=== PATIENT | male | born 1965 | race Caucasian/White ===

== ENCOUNTER → 2023-12-31 06:41 | Outpatient (REF) | payer OTHER, SELFPAY | LOC: RAD 06:41 | PROVIDERS: ATTENDING PHYSICIAN Physician Assistant; FAMILY PHYSICIAN Physician Assistant Medical | DX: E83.52 Hypercalcemia (principal); E34.9 Endocrine disorder, unspecified | CPT/HCPCS: 78071; A9500 ==

== ENCOUNTER → 2024-01-08 07:08 | Outpatient (REF) | payer OTHER, SELFPAY | LOC: RAD 07:08 | PROVIDERS: ATTENDING PHYSICIAN Physician Assistant; FAMILY PHYSICIAN Physician Assistant Medical | DX: E83.52 Hypercalcemia (principal); E34.9 Endocrine disorder, unspecified | CPT/HCPCS: 77080; 77081 ==

== ENCOUNTER → 2024-01-12 07:00 | Outpatient (REF) | payer OTHER, SELFPAY | LOC: HWRAD 07:00 | PROVIDERS: ATTENDING PHYSICIAN Physician Assistant; FAMILY PHYSICIAN Physician Assistant Medical | DX: E83.52 Hypercalcemia (principal); E34.9 Endocrine disorder, unspecified | CPT/HCPCS: 76536 ==

== ENCOUNTER 2024-03-08 06:04 | Day surgery (SDC) | payer OTHER, SELFPAY ==
[2024-03-02 07:53] VITALS: BMI 53.3
[2024-03-02 09:23] LABS: Hematocrit 40.2 % (39.0-52.0); Hemoglobin 13.6 g/dL (13.0-18.0); Mean Corp Hgb Conc. 33.8 g/dL (33.0-37.0); Mean Corpuscular Hgb 31.2 pg (27.0-31.0); Mean Corpuscular Volume 92.2 fL (80.0-94.0); Mean Platelet Volume 11.9 fL (7.4-10.4); Platelet Count 231 10^3/uL (130-400); Red Blood Cell Count 4.36 10^6/uL (4.70-6.10); Red Cell Dist. Width 12.9 % (11.5-14.5); White Blood Cell Count 8.5 10^3/uL (4.8-10.8)
[2024-03-02 09:27] LABS: INR 1.21; PT 15.4 Sec (11.4-14.6)
[2024-03-02 09:28] LABS: APTT 30.4 Sec (23.4-35.0)
[2024-03-02 09:57] LABS: ALT (SGPT) 20 U/L (0-50); AST (SGOT) 22 U/L (17-59); Albumin 4.4 g/dl (3.5-5.0); Alkaline Phosphatase 67 U/L (38-126); Blood Urea Nitrogen 32 mg/dl (9-20); Calcium 11.6 mg/dl (8.4-10.2); Carbon Dioxide 24 mmol/L (22-30); Chloride 105 mmol/L (98-107); Estimated Creatinine Clearance 104 ml/min; Glucose 158 mg/dl (70-99); Potassium 4.6 mmol/L (3.5-5.1); Sodium 138 mmol/L (135-145); Total Bilirubin 1.9 mg/dl (0.2-1.3); Total Protein 7.2 g/dl (6.3-8.2); eGFR > 60.00
[2024-03-08] VITALS (8 sets, daily range): BP systolic 126–149; BP diastolic 76–95; BMI 53.3
[2024-03-08] MEDS: HEPARIN 5000 UNITS SC (06:32)
[2024-03-08] MEDS: TYLENOL 1000 MG PO (06:33)
[2024-03-08] MEDS: NEURONTIN 300 MG PO (06:33)
[2024-03-08] MEDS: NORMOSOL-R 1000 IV (06:34)
[2024-03-08 06:41] LABS: Glucose - Point of Care 174 mg/dl (70-99)
[2024-03-08 08:46] LABS: Turbo PTH 154.3 pg/ml (13.6-85.8)
[2024-03-08 09:16] LABS: Turbo PTH 24.4 pg/ml (13.6-85.8)
--- NOTE | 2024-03-08 09:23 | OR.RPT ---
Operative Report
Operative Report
Date of Operation: March 08, 2024
Preoperative Diagnosis: �Parathyroid hyperparathyroidism - E210
Postoperative Diagnosis: Same
Surgeon: Chago Manzo M.D.
Operation: Minimally Invasive Right Inferior Parathyroidectomy - 43302
Anesthesia: GET
Estimated Blood Loss: 3 cc
Drains: None
Specimen: Right inferior neck nodule, rule out parathyroid adenoma
Complications: �None
Procedure:
The patient was taken to the operating room and placed in the usual supine position. After adequate general endotracheal anesthesia was established, the patient's neck was extended, prepped, and draped in the typical sterile fashion. A 4 cm
transcervical incision was made two fingerbreadths above the sternal notch. The skin incision was made with the #15 blade, and this was taken through the skin into the subcutaneous tissue. The underlying platysma muscle was divided, and subplatysmal
flaps were created superiorly to the thyroid cartilage and inferiorly to the sternal notch. Strap muscles were identified and at the midline.
Attention was turned to the patient's right side of the neck. The right thyroid lobe was mobilized medially. During this process, the right recurrent laryngeal nerve was identified and preserved throughout the surgery. The right lower neck nodule
was identified and noted to be enlarged, excised, and sent to the pathology department, which showed a hypercellular parathyroid gland. The intraoperative PTH levels normalized.
After obtaining adequate hemostasis, the strap muscles were reapproximated with #3-0 Vicryl in a running fashion. The platysma muscle was reapproximated with #3-0 Vicryl in an interrupted fashion, and the skin was approximated with #4-0 Monocryl in
a running subcuticular fashion. The Steri-Strips and sterile dressings were placed. The patient tolerated the procedure well. The final instrument, needle, and sponge counts were correct. The patient was extubated and transferred to the PACU.
--- NOTE | 2024-03-08 09:24 | W.IMMPOSTOP ---
Surgical Immed Post Op Note
-
Patient Name: Venkatesh Lam Jr
Date of : 1965
Date of Operation: March 08, 2024
Preoperative Diagnosis: �Parathyroid hyperparathyroidism - E210
Postoperative Diagnosis: Same
Surgeon: Chago Manzo M.D.
Operation: Minimally Invasive Right Inferior Parathyroidectomy - 70781
Anesthesia: GET
Estimated Blood Loss: 3 cc
Drains: None
Specimen: Right inferior neck nodule, rule out parathyroid adenoma
Complications: �None
[2024-03-08 09:56] LABS: Glucose - Point of Care 180 mg/dl (70-99)
== END 2024-03-08 11:20 | disposition home or self-care (01) ==
LOC: SDS 06:04
PROVIDERS: ATTENDING PHYSICIAN Surgery; FAMILY PHYSICIAN Physician Assistant Medical; OTHER PHYSICIAN Internal Medicine Cardiovascular Disease; OTHER PHYSICIAN Physician Assistant
DX: E21.0 Primary hyperparathyroidism (principal); E21.3 Hyperparathyroidism, unspecified
CPT/HCPCS: 60500; 88305; 88332; 36415; 80053; 82962; 83970; 85027; 85610; 85730; 88331; 93005

== ENCOUNTER 2024-09-16 10:37 | Emergency (ER) | payer OTHER, SELFPAY ==
[2024-09-16 10:40] VITALS: BP 114/71
--- NOTE | 2024-09-16 11:44 | ED.GENMED ---
History of Present Illness
General
Chief Complaint: Abdominal Pain
Time Seen by Provider: 09/16/24 11:33
History of Present Illness
History of Present Illness:
58-year-old male with history of A-fib, morbid obesity, CHF, hypertension, and hyperlipidemia presents to the emergency department for evaluation of left lower abdominal pain for the past 2 days. He was initially concerned this was related to his
umbilical hernia as it began after straining for a bowel movement. States that he has difficulty passing gas but he still is passing flatus. No fevers or chills. Did have diarrhea but notes that he is currently on Mounjaro and this is not
atypical since he started this medication.
Past History
Past History
ED Past Medical History: Arrthythmia (afib), HTN, Hypercholesterolemia, NIDDM and Other (Pulmonary embolism/DVT, Naval hernia)
ED Past Surgical History: Other (Gastric sleeve, uvulectomy, IVC filter)
Social History
Tobacco: Non-smoker
Alcohol: None
Drug: None
Personal:
Living: alone
Employment: Employed
Family History
Family History: Other (Noncontributory)
Review of Systems
Review of Systems
Allergies reviewed?: Yes
All Other Systems: ROS reviewed and negative except as documented in HPI and ROS
Phy Exam
Physical Exam
Physical Exam:
GEN: Well appearing, NAD, WDWN
Eyes: PERRLA, EOMs intact, no scleral icterus
HENT: NCAT, oral mucosa moist
Lungs: CTAB, no wheezes, rales, rhonchi, normal chest wall excursion
Cardiac: RRR, no M/R/G, no peripheral edema. Radial pulses 2+ bilat
Abdomen: Diffusely soft, focal tenderness to the left lower quadrant. There is a soft large umbilical hernia that is not easily reduced, + tender to palpation
Neuro: AO x 3
MSK: No gross deformity or ecchymosis. No edema. No digital clubbing
Skin: No rashes, petechiae. Normal color, no pallor or jaundice.
Psych: Calm, cooperative, proper hygiene
Course
Orders/Labs/Results
Orders:
Orders
09/16/24 11:43
CT Abd/Pel (IV only)-DH only Urgent
Comment:
Reason For Exam: LLQ pain
09/16/24 12:08
Complete Blood Count/With Diff Urgent
Comprehensive Metabolic Panel Urgent
Abnormal Lab Results
09/16/24
12:08
RBC 3.63 L 10^6/uL
(4.70-6.10)
Hgb 12.2 L g/dL
(13.0-18.0)
Hct 35.8 L %
(39.0-52.0)
MCV 98.6 H fL
(80.0-94.0)
MCH 33.6 H pg
(27.0-31.0)
MPV 11.2 H fL
(7.4-10.4)
Chloride 109 H mmol/L
(98-107)
BUN 32 H mg/dl
(9-20)
Glucose 106 H mg/dl
(70-99)
Calcium 10.3 H mg/dl
(8.4-10.2)
Total Bilirubin 1.4 H mg/dl
(0.2-1.3)
09/16/24 12:08
09/16/24 12:08
Vital Signs
Initial and Last Documented VS:
Initial Vital Signs
Temp Pulse Resp BP Pulse Ox
98.1 F 95 16 114/71 98
09/16/24 10:40 09/16/24 10:40 09/16/24 10:40 09/16/24 10:40 09/16/24 10:40
Last Documented Vital Signs
Temp Pulse Resp BP Pulse Ox
98.1 F 80 12 109/75 96
09/16/24 10:40 09/16/24 14:15 09/16/24 14:15 09/16/24 14:00 09/16/24 14:00
MDM/Problems Addressed
MDM/Problems Addressed:
CT without a clearly explainable etiology to the patient's symptoms. There is some mild inflammatory change around the umbilical hernia however there is no bowel within the hernia thus this is not a concerning finding. May be a musculoskeletal
etiology
*Critical Care Note
Total Time (30-74mins, 75-104mins- exclusive of procedures): Not Applicable
ED Attending Note
-
Portions of this chart may have been created with voice recognition software.� Occasional wrong word or��sound alike� substitutions may have occurred due to the inherent limitations of voice recognition software.
Discharge Plan
Departure
Patient Disposition: Home (Routine Discharge)
Date of Disposition: 09/16/24
Time of Disposition: 14:12
Patient with high blood pressure during this ER visit?: No
Discharge Problem:
Abdominal pain, lower, Hernia, umbilical
Instructions: Abdominal Pain
Prescriptions:
No Action
cyanocobalamin (vitamin B-12) 1,000 MCG tablet
500 mcg PO DAILY
cetirizine 10 MG tablet
10 mg PO DAILY
cholecalciferol (vitamin D3) 2,000 UNITS tablet
2,000 units PO DAILY
Xarelto 20 MG tablet
20 mg PO DAILY
multivitamin with folic acid [Tab-A-Suellen] 1 TABLET tablet
1 tab PO DAILY
metformin 500 MG tablet
500 mg PO BID@0800,1700
atorvastatin 20 MG tablet
20 mg PO DAILY
fluticasone propionate 1 SPRAY spray,suspension
2 spray intranasal DAILY
nebivolol 10 MG tablet
20 mg PO DAILY
magnesium oxide 500 MG tablet
500 mg PO DAILY 30 Days Qty: 30 0RF
furosemide 40 mg tablet
40 mg PO DAILY
spironolactone 25 MG tablet
25 mg PO DAILY
allopurinol 100 mg Tablet
100 mg PO BID
acetaminophen [Tylenol Ex Str Arthritis Pain] 500 mg Tablet
500 mg PO Q6H PRN (Reason: discomfort)
valsartan 320 mg Tablet
320 mg PO DAILY
ibuprofen 200 mg Tablet
200 mg PO Q6H PRN (Reason: discomfort)
insulin glargine [Lantus Solostar U-100 Insulin] 100 unit/mL (3 mL) Insulin Pen
10 unit SC DAILY
turmeric 400 mg Capsule
400 mg PO DAILY
Mounjaro 5 mg/0.5 mL Pen Injector
5 mg SC SA
Ice Hot Cream
1 dose topical PRN PRN (Reason: pain)
Slo-Iron
1 tab PO DAILY
Referrals:
Nely Patel PA-C [Family Provider] -
Interventions
Interventions:
*Risk Screen - Suicide Last Done: 09/16/24 10:40
*General Assessment Last Done: 09/16/24 10:40
*Neglect/Abuse Screening Last Done: 09/16/24 10:40
*ED COVID-19 Vaccine History Last Done: 09/16/24 12:00
*Nursing Disposition Last Done: 09/16/24 14:42
[facility]-Rzbyxw-Voxsbggewg Assessment Last Done: 09/16/24 12:12
Discharge Date and Time
Discharge Date/Time: 09/16/24 14:42
Print Language: THAI
[2024-09-16 11:59] VITALS: BMI 47.2
[2024-09-16 12:08] VITALS: BP 118/80
[2024-09-16 12:17] LABS: % Basophils 0.7 % (0-2); % Eosinophils 2.1 % (0-6); % Immature Granulocytes 0.3 % (0-0.5); % Lymphocytes 24.3 % (20.5-51.1); % Monocytes 6.4 % (1.7-9.3); % Neutrophils 66.2 % (42.2-75.2); Absolute Basophils 0.1 10^3/uL (0-0.2); Absolute Eosinophils 0.2 10^3/uL (0-0.7); Absolute Lymphocytes 1.8 10^3/uL (1.2-3.4); Absolute Monocytes 0.5 10^3/uL (0.1-0.6); Absolute Neutrophils 4.8 10^3/uL (1.4-6.5); Hematocrit 35.8 % (39.0-52.0); Hemoglobin 12.2 g/dL (13.0-18.0); Mean Corp Hgb Conc. 34.1 g/dL (33.0-37.0); Mean Corpuscular Hgb 33.6 pg (27.0-31.0); Mean Corpuscular Volume 98.6 fL (80.0-94.0); Mean Platelet Volume 11.2 fL (7.4-10.4); Nucleated Red Blood Cells % 0 % (-); Platelet Count 232 10^3/uL (130-400); Red Blood Cell Count 3.63 10^6/uL (4.70-6.10); Red Cell Dist. Width 13.5 % (11.5-14.5); White Blood Cell Count 7.2 10^3/uL (4.8-10.8)
[2024-09-16 12:40] LABS: ALT (SGPT) 20 U/L (0-50); AST (SGOT) 21 U/L (17-59); Albumin 4.3 g/dl (3.5-5.0); Alkaline Phosphatase 45 U/L (38-126); Blood Urea Nitrogen 32 mg/dl (9-20); Calcium 10.3 mg/dl (8.4-10.2); Carbon Dioxide 23 mmol/L (22-30); Chloride 109 mmol/L (98-107); Estimated Creatinine Clearance 96 ml/min; Glucose 106 mg/dl (70-99); Potassium 4.5 mmol/L (3.5-5.1); Sodium 143 mmol/L (135-145); Total Bilirubin 1.4 mg/dl (0.2-1.3); Total Protein 6.8 g/dl (6.3-8.2); eGFR > 60.00
[2024-09-16 13:16] VITALS: BP 95/79
[2024-09-16 14:00] VITALS: BP 109/75
== END 2024-09-16 14:42 | disposition home or self-care (01) ==
LOC: EMR 10:37
PROVIDERS: Physician Assistant; EMERGENCY PHYSICIAN Student in an Organized Health Care Education/Training Program; FAMILY PHYSICIAN Physician Assistant Medical
DX: K42.9 Umbilical hernia without obstruction or gangrene (principal); I48.91 Unspecified atrial fibrillation; I11.0 Hypertensive heart disease with heart failure; I50.9 Heart failure, unspecified; E78.00 Pure hypercholesterolemia, unspecified; E11.9 Type 2 diabetes mellitus without complications; Z86.718 Personal history of other venous thrombosis and embolism; Z79.85 Long-term (current) use of injectable non-insulin antidiabetic drugs
CPT/HCPCS: 99284; 74177; 80053; 85025; Q9967

== ENCOUNTER → 2025-04-25 07:42 | Outpatient (REF) | payer OTHER, SELFPAY | LOC: HWRAD 07:42 | PROVIDERS: ATTENDING PHYSICIAN Specialist; FAMILY PHYSICIAN Physician Assistant Medical; REFERRING PHYSICIAN Physician Assistant | DX: N18.30 Chronic kidney disease, stage 3 unspecified (principal); N18.31 Chronic kidney disease, stage 3a | CPT/HCPCS: 76770 ==

== ENCOUNTER 2025-04-25 08:42 | Emergency (ER) | payer OTHER, SELFPAY ==
[2025-04-25] VITALS (9 sets, daily range): BP systolic 114–140; BP diastolic 68–92; PULSE 79–90; BMI 44.8
--- NOTE | 2025-04-25 10:29 | ED.GENMED ---
History of Present Illness
General
Chief Complaint: Breathing Problem
Source: patient
Exam Limitations: none
Time Seen by Provider: 04/25/25 09:48
Nursing documentation reviewed up to this point in time: agreed with
History of Present Illness
History of Present Illness:
Patient is a 59-year-old male with chronic atrial fibrillation, DVT/PE on Xarelto, status post gastric sleeve in 2017, IVC filter,
Presents for exertional shortness of breath since yesterday noticeable only mildly with exertion but patient did not have any chest discomfort or inability to move around. This morning when he woke up he says he still felt a little short of breath
with exertion and also felt lightheaded while he was driving his car. Patient says he was feeling not himself and started getting concerned about his breathing. He has had episodes like this that have been related to congestive heart failure but
he has been compliant with his Lasix and his weight has not been increasing. He also previously had an IVC filter preemptively prior to his gastric sleeve and ultimately in 2018 had bilateral PE with right heart strain. Patient does not recall
stopping his Xarelto around that time but the discharge summary from his admission suggest that there was a brief interruption in his Xarelto. He was heparinized and transition back to the Xarelto. He has never had a new clot since. He did have a
traumatic hematoma of his lower extremity from a golf ball that caused a chronic wound and poor healing, patient had a wound VAC etc. That has healed but he has chronic skin changes of his lower extremity. He has no redness that is new or pain
there. Probably coincidentally 2 weeks ago the patient got a golf ball to his right medial thigh when he hit the golf ball and it ricocheted off of something back to his thigh. He has a bruise there but minimal pain and no swelling and no distal
leg swelling. Patient does not believe this is contributory but he was a little anxious because of his previous hematoma/infection.
pt is chronicalyl in afib
Past History
Past History
ED Past Medical History: Arrthythmia (afib), HTN, Hypercholesterolemia, NIDDM and Other (Pulmonary embolism/DVT, Naval hernia)
ED Past Surgical History: Other (Gastric sleeve, uvulectomy, IVC filter)
Social History
Tobacco: Non-smoker
Alcohol: None
Drug: None
Personal:
Living: alone
Employment: Employed
Family History
Family History: Other (Noncontributory)
Review of Systems
Review of Systems
Allergies reviewed?: Yes
All Other Systems: Not applicable
Phy Exam
Physical Exam
Physical Exam:
GENERAL: Alert , in no apparent distress, speaking in full sentences
EYE: pupils equal and reactive
NECK: Supple
ENT: o/p clr, mmm.
CARDIAC: Regular rate and rhythm . No significant edema
LUNGS: Patient has a faint end expiratory wheeze in his right lower lobe and right upper lobe, no cough, no tachypnea
ABDOMEN: Soft, without focal tenderness, no r/g, no cvat, normal bowel sounds
NEUROLOGICAL: Alert and oriented, no focal neuro deficits
SKIN: Warm and dry, skin intact.
MUSCULOSKELETAL: No edema, chronic skin changes to his left lower extremity, hyperpigmentation
Pulses intact neg fabby's sign
PSYCH: Normal and appropriate interaction.
Scores
Heart Failure Risk
Heart Failure Risk Score: Not Applicable
Course
Orders/Labs/Results
Orders:
Orders
04/25/25 09:02
Electrocardiogram (*1) Urgent
Reason for Study: Chest Pain
04/25/25 09:03
EKG- Treatment ONCE
04/25/25 10:05
Orthostatic VS- Treatment ONCE
04/25/25 10:07
CT Chest PE Study Urgent
Comment:
Reason For Exam: h/o B/L PE, sob
COVID-19 Antigen Urgent
Source: Nasal Swab
Complete Blood Count/With Diff Urgent
Comprehensive Metabolic Panel Urgent
NT-proBNP Urgent
Troponin I Urgent
Abnormal Lab Results
04/25/25
10:07
RBC 3.68 L 10^6/uL
(4.70-6.10)
Hgb 12.1 L g/dL
(13.0-18.0)
Hct 35.0 L %
(39.0-52.0)
MCV 95.1 H fL
(80.0-94.0)
MCH 32.9 H pg
(27.0-31.0)
MPV 11.3 H fL
(7.4-10.4)
Lymphocytes % 18.5 L %
(20.5-51.1)
BUN 26 H mg/dl
(9-20)
Creatinine 1.4 H mg/dL
(0.7-1.3)
Glucose 126 H mg/dl
(70-99)
Total Bilirubin 1.8 H mg/dl
(0.2-1.3)
04/25/25 10:07
04/25/25 10:07
Vital Signs
Initial and Last Documented VS:
Initial Vital Signs
Temp Pulse Resp BP Pulse Ox
36.7 C 108 22 140/92 97
04/25/25 08:59 04/25/25 08:59 04/25/25 08:59 04/25/25 08:59 04/25/25 08:59
Last Documented Vital Signs
Temp Pulse Resp BP Pulse Ox
36.7 C 87 15 132/86 100
04/25/25 08:59 04/25/25 12:35 04/25/25 12:35 04/25/25 12:35 04/25/25 12:35
MDM/Problems Addressed
Differential Diagnosis Includes:
PE, bronchitis, CHF, symptomatic A-fib, aortic stenosis, COVID or viral syndrome
MDM/Problems Addressed:
59-year-old male chronically in A-fib, history of DVT and PE on Xarelto, IVC filter presents for mild shortness of breath with exertion since yesterday. Patient said he never got any pain in his chest when he would walk around but just did feel
little bit of chest tightness with deep breathing. It was minimally noticeable yesterday. When he woke up this morning he also felt it when he walked from the car to an outpatient test that he had scheduled for his kidneys. Patient said he also
got a little lightheaded while he was in his car today and he started to get nervous that maybe he had another blood clot. Patient has a history of CHF and takes Lasix and his weight has been stable. He says he developed a little bit of chest
congestion but has not had a fever, sore throat, stuffy nose, other viral syndrome symptoms. He has no history of asthma or COPD.
Patient looks extremely well, his heart rate is in the 90s, he is in chronic A-fib, stable pulse ox and blood pressure. He has a very faint end expiratory wheeze on the right, no cough.
Given the fact that the patient has had PE despite being on Xarelto and also despite having an IVC filter I did pursue a CT chest to rule out a PE. Patient had no PE, but did have some dependent atelectasis bilaterally without pneumonia. His BNPIs
his 1290 which is much lower than his previous BMPs, he has no signs of pulmonary edema, troponin is negative. It is unclear the cause of his lightheadedness and exertional dyspnea but with the faint wheezing and chest congestion this could be URI.
Will give him an inhaler to use over the next couple of days and recommend close follow-up with his linen clerk to his through [facility]
Return precautions
*Critical Care Note
Total Time (30-74mins, 75-104mins- exclusive of procedures): Not Applicable
ED Attending Note
-
Portions of this chart may have been created with voice recognition software.� Occasional wrong word or��sound alike� substitutions may have occurred due to the inherent limitations of voice recognition software.
Discharge Plan
Departure
Patient Disposition: Home (Routine Discharge)
Date of Disposition: 04/25/25
Time of Disposition: 12:42
Patient with high blood pressure during this ER visit?: No
Condition: Fair
Covid-19: Not Applicable
Discharge Problem:
Chronic atrial fibrillation, Dyspnea, Wheezing
Instructions: Shortness of Breath (Dyspnea) (DC)
Prescriptions:
New
albuterol sulfate [Ventolin HFA] 90 mcg/actuation HFA aerosol inhaler
2 puff inhalation Q6H PRN (Reason: shortness of breath or wheezing) Qty: 6.7 0RF
No Action
cyanocobalamin (vitamin B-12) 1,000 MCG tablet
500 mcg PO DAILY
cetirizine 10 MG tablet
10 mg PO DAILY
cholecalciferol (vitamin D3) 2,000 UNITS tablet
2,000 units PO DAILY
Xarelto 20 MG tablet
20 mg PO DAILY
multivitamin with folic acid [Tab-A-Suellen] 1 TABLET tablet
1 tab PO DAILY
metformin 500 MG tablet
500 mg PO BID@0800,1700
atorvastatin 20 MG tablet
20 mg PO DAILY
fluticasone propionate 1 SPRAY spray,suspension
2 spray intranasal DAILY
nebivolol 10 MG tablet
20 mg PO DAILY
magnesium oxide 500 MG tablet
500 mg PO DAILY 30 Days Qty: 30 0RF
furosemide 40 mg tablet
40 mg PO DAILY
spironolactone 25 MG tablet
25 mg PO DAILY
allopurinol 100 mg Tablet
100 mg PO BID
acetaminophen [Tylenol Ex Str Arthritis Pain] 500 mg Tablet
500 mg PO Q6H PRN (Reason: discomfort)
valsartan 320 mg Tablet
320 mg PO DAILY
ibuprofen 200 mg Tablet
200 mg PO Q6H PRN (Reason: discomfort)
insulin glargine [Lantus Solostar U-100 Insulin] 100 unit/mL (3 mL) Insulin Pen
10 unit SC DAILY
turmeric 400 mg Capsule
400 mg PO DAILY
Mounjaro 5 mg/0.5 mL Pen Injector
5 mg SC SA
Ice Hot Cream
1 dose topical PRN PRN (Reason: pain)
Slo-Iron
1 tab PO DAILY
Referrals:
Nely Patel PA-C [Family Provider, Family Practice] - Follow up in 2-3 days
Activity Restrictions/Additional Instructions:
Your blood work looks reassuring, your your CAT scan does not show any blood clot. You do have a little mucus plugging in your lungs. You could be developing an upper respiratory infection with the slight wheezing that you had. Use the albuterol
inhaler 2 puffs every 4-6 hours as needed
Call your linen clerk for follow-up appointment. Make sure to monitor your weights to be sure that you are not starting to become fluid overloaded.
Return for worsening symptoms like chest pain with walking, worsening shortness of breath at rest, passing out, elevated heart rates or any concerns.
Interventions
Interventions:
*Risk Screen - Suicide Last Done: 04/25/25 08:59
*General Assessment Last Done: 04/25/25 08:59
*Neglect/Abuse Screening Last Done: 04/25/25 08:59
*Nursing Disposition Last Done: 04/25/25 13:12
ED- Cardiac Assessment Last Done: 04/25/25 09:44
ED- Pulmonary Assessment Last Done: 04/25/25 09:44
Discharge Date and Time
Discharge Date/Time: 04/25/25 13:12
Print Language: PALAUAN
[2025-04-25 10:34] LABS: ALT (SGPT) 15 U/L (0-50); AST (SGOT) 17 U/L (17-59); Albumin 4.2 g/dl (3.5-5.0); Alkaline Phosphatase 48 U/L (38-126); Blood Urea Nitrogen 26 mg/dl (9-20); Calcium 10.1 mg/dl (8.4-10.2); Carbon Dioxide 24 mmol/L (22-30); Chloride 106 mmol/L (98-107); Estimated Creatinine Clearance 88 ml/min; Glucose 126 mg/dl (70-99); Potassium 4.2 mmol/L (3.5-5.1); Sodium 140 mmol/L (135-145); Total Bilirubin 1.8 mg/dl (0.2-1.3); Total Protein 6.7 g/dl (6.3-8.2); eGFR 57.18
[2025-04-25 10:44] LABS: Troponin I < 0.012 ng/ml
[2025-04-25 10:49] LABS: % Basophils 0.6 % (0-2); % Immature Granulocytes 0.3 % (0-0.5); % Lymphocytes 18.5 % (20.5-51.1); % Monocytes 6.3 % (1.7-9.3); % Neutrophils 72.3 % (42.2-75.2); Absolute Basophils 0.1 10^3/uL (0-0.2); Absolute Eosinophils 0.2 10^3/uL (0-0.7); Absolute Lymphocytes 1.5 10^3/uL (1.2-3.4); Absolute Monocytes 0.5 10^3/uL (0.1-0.6); Absolute Neutrophils 5.8 10^3/uL (1.4-6.5); Hemoglobin 12.1 g/dL (13.0-18.0); Mean Corp Hgb Conc. 34.6 g/dL (33.0-37.0); Mean Corpuscular Hgb 32.9 pg (27.0-31.0); Mean Corpuscular Volume 95.1 fL (80.0-94.0); Mean Platelet Volume 11.3 fL (7.4-10.4); Nucleated Red Blood Cells % 0 % (-); Platelet Count 232 10^3/uL (130-400); Red Blood Cell Count 3.68 10^6/uL (4.70-6.10); Red Cell Dist. Width 13.2 % (11.5-14.5)
[2025-04-25 11:06] LABS: COVID-19 Antigen Negative (Negative)
[2025-04-25 11:10] LABS: NT-proBNP 1290 pg/ml
== END 2025-04-25 13:12 | disposition home or self-care (01) ==
LOC: EMR 08:42
PROVIDERS: Physician Assistant; EMERGENCY PHYSICIAN Student in an Organized Health Care Education/Training Program; FAMILY PHYSICIAN Physician Assistant Medical
DX: I48.20 Chronic atrial fibrillation, unspecified (principal); R06.09 Other forms of dyspnea; R06.2 Wheezing; E78.00 Pure hypercholesterolemia, unspecified; E11.9 Type 2 diabetes mellitus without complications; I11.0 Hypertensive heart disease with heart failure; I50.9 Heart failure, unspecified; Z79.01 Long term (current) use of anticoagulants; Z86.711 Personal history of pulmonary embolism; Z98.84 Bariatric surgery status
CPT/HCPCS: 99284; 71275; 80053; 83880; 84484; 85025; 87811; 93005; Q9967

== ENCOUNTER 2025-09-09 09:11 | Emergency (ER) | payer OTHER, SELFPAY ==
[2025-09-09 09:13] VITALS: BP 124/80
[2025-09-09 09:43] VITALS: BP 95/58
--- NOTE | 2025-09-09 09:58 | ED.GENMED ---
History of Present Illness
<Angie Steward FILLING CARRIER - Last Filed: 09/09/25 17:47>
General
Chief Complaint: Chest Pain
Source: patient
Exam Limitations: none
Time Seen by Provider: 09/09/25 09:56
Nursing documentation reviewed up to this point in time: agreed with
History of Present Illness
History of Present Illness:
59-year-old male with history of A-fib, PE/DVT, morbid obesity, CHF, hypertension, and hyperlipidemia, NIDDM, gastric sleeve, IVC filter presents for left lateral and under axilla chest pain that started 6:15 a.m. Now 04/25, constant, worse with deep
breaths. Took Tylenol with no relief. Denies SOB, Abd pain, n/v/d/c. Denies lightheadedness. No recollection of overuse or injury. Has had similar pain in the same area in the past that usually resolves with moving around, but this pain has remained
constant.
Past History
<Angie Steward, FILLING CARRIER - Last Filed: 09/09/25 17:47>
Past History
ED Past Medical History: Arrthythmia (afib), HTN, Hypercholesterolemia, NIDDM and Other (Pulmonary embolism/DVT, Naval hernia)
ED Past Surgical History: Other (Gastric sleeve 2017, uvulectomy, IVC filter, partial parathyroidectomy)
Social History
Tobacco: Non-smoker
Alcohol: None
Drug: Marijuana (smokes and uses gummies)
Personal:
Living: alone
Employment: Disabled
Family History
Family History: Other (Noncontributory)
Review of Systems
<Angie Steward, FILLING CARRIER - Last Filed: 09/09/25 17:47>
Review of Systems
Allergies reviewed?: Yes
All Other Systems: ROS reviewed and negative except as documented in HPI and ROS
Phy Exam
<Angie Steward, FILLING CARRIER - Last Filed: 09/09/25 17:47>
Physical Exam
Physical Exam:
GENERAL: No acute distress. A&Ox3.
CONSTITUTIONAL: Afebrile.
EYES: clear, conjunctivae normal
ENMT: moist mucus membranes, Pharynx nl
RESPIRATORY: Regular respirations, nonlabored, lungs clear.
CARDIOVASCULAR: Regular rate and rhythm, no murmurs, no rubs. Pain is mildly reproducible with palpation over the lateral left chest wall.
GI: Soft, nontender, normal BS
MUSCULOSKELETAL: Moves with ease. Well perfused.
SKIN: Warm, dry, pink discolored left lower extremity ankle from a previous chronic wound that is now healed.
PSYCH: Normal mood and affect. Well kept, interactive and appropriate
NEUROLOGIC: Awake, alert and oriented. No focal neurological deficits morbidly obese,
Scores
<Angie Steward, FILLING CARRIER - Last Filed: 09/09/25 17:47>
Heart Score for Chest Pain Patients
STEMI patient?: Not applicable
Course
<Angie Steward, FILLING CARRIER - Last Filed: 09/09/25 17:47>
Orders/Labs/Results
Orders:
Orders
09/09/25 09:13
ECG [Electrocardiogram (*1)] Urgent
Reason for Study: Chest Pain
EKG- Treatment ONCE
09/09/25 10:36
Complete Blood Count/With Diff Urgent
Troponin I Urgent
09/09/25 10:38
CMP [Comprehensive Metabolic Panel] Urgent
09/09/25 11:53
CT Chest PE Study Urgent
Comment:
Reason For Exam: left sided chest pain, h/o PE
0.9% Sodium Chloride 500 ml [Nss] 500 ml IV BOLUS
Abnormal Lab Results
09/09/25 09/09/25
10:36 10:38
RBC 3.62 L 10^6/uL
(4.70-6.10)
Hgb 11.6 L g/dL
(13.0-18.0)
Hct 35.3 L %
(39.0-52.0)
MCV 97.5 H fL
(80.0-94.0)
MCH 32.0 H pg
(27.0-31.0)
MCHC 32.9 L g/dL
(33.0-37.0)
MPV 11.7 H fL
(7.4-10.4)
Absolute Lymphs (auto) 1.1 L 10^3/uL
(1.2-3.4)
Absolute Monos (auto) 0.9 H 10^3/uL
(0.1-0.6)
Lymphocytes % 14.2 L %
(20.5-51.1)
Monocytes % 11.5 H %
(1.7-9.3)
BUN 45 H mg/dl
(9-20)
Creatinine 1.7 H mg/dL
(0.7-1.3)
Glucose 118 H mg/dl
(70-99)
Total Bilirubin 1.8 H mg/dl
(0.2-1.3)
09/09/25 10:36
09/09/25 10:38
Vital Signs
Initial and Last Documented VS:
Initial Vital Signs
Temp Pulse Resp BP Pulse Ox
97.9 F 106 20 124/80 97
09/09/25 09:13 09/09/25 09:13 09/09/25 09:13 09/09/25 09:13 09/09/25 09:13
Last Documented Vital Signs
Temp Pulse Resp BP Pulse Ox
97.9 F 89 12 107/73 98
09/09/25 09:13 09/09/25 12:45 09/09/25 12:45 09/09/25 12:28 09/09/25 12:00
Car Painter consulted with Physician
Car Painter consulted with physician?: Yes
Name of Physician Consulted: Marvin
<Sedrick Wong MD - Last Filed: 09/09/25 12:58>
Orders/Labs/Results
Orders:
Orders
09/09/25 09:13
ECG [Electrocardiogram (*1)] Urgent
Reason for Study: Chest Pain
EKG- Treatment ONCE
09/09/25 10:36
Complete Blood Count/With Diff Urgent
Troponin I Urgent
09/09/25 10:38
CMP [Comprehensive Metabolic Panel] Urgent
09/09/25 11:53
CT Chest PE Study Urgent
Comment:
Reason For Exam: left sided chest pain, h/o PE
0.9% Sodium Chloride 500 ml [Nss] 500 ml IV BOLUS
Abnormal Lab Results
09/09/25 09/09/25
10:36 10:38
RBC 3.62 L 10^6/uL
(4.70-6.10)
Hgb 11.6 L g/dL
(13.0-18.0)
Hct 35.3 L %
(39.0-52.0)
MCV 97.5 H fL
(80.0-94.0)
MCH 32.0 H pg
(27.0-31.0)
MCHC 32.9 L g/dL
(33.0-37.0)
MPV 11.7 H fL
(7.4-10.4)
Absolute Lymphs (auto) 1.1 L 10^3/uL
(1.2-3.4)
Absolute Monos (auto) 0.9 H 10^3/uL
(0.1-0.6)
Lymphocytes % 14.2 L %
(20.5-51.1)
Monocytes % 11.5 H %
(1.7-9.3)
BUN 45 H mg/dl
(9-20)
Creatinine 1.7 H mg/dL
(0.7-1.3)
Glucose 118 H mg/dl
(70-99)
Total Bilirubin 1.8 H mg/dl
(0.2-1.3)
09/09/25 10:36
09/09/25 10:38
Vital Signs
Initial and Last Documented VS:
Initial Vital Signs
Temp Pulse Resp BP Pulse Ox
97.9 F 106 20 124/80 97
09/09/25 09:13 09/09/25 09:13 09/09/25 09:13 09/09/25 09:13 09/09/25 09:13
Last Documented Vital Signs
Temp Pulse Resp BP Pulse Ox
97.9 F 89 12 107/73 98
09/09/25 09:13 09/09/25 12:45 09/09/25 12:45 09/09/25 12:28 09/09/25 12:00
<Angie Steward, FILLING CARRIER - Last Filed: 09/09/25 17:47>
MDM/Problems Addressed
Differential Diagnosis Includes:
Musculoskeletal chest wall pain versus ACS/MA
MDM/Problems Addressed:
59-year-old male with history of A-fib, PE/DVT, morbid obesity, CHF, hypertension, and hyperlipidemia, NIDDM, gastric sleeve, IVC filter presents for left lateral and under axilla chest pain that started 6:15 a.m. Now 6/, constant, worse with deep
breaths. Took Tylenol with no relief. Denies SOB, Abd pain, n/v/d/c. Denies lightheadedness. No recollection of overuse or injury. Has had similar pain in the same area in the past that usually resolves with moving around, but this pain has remained
constant.
EKG: A-fib with heart rate 95.
CBC with no clinically significant abnormality
CMP: BUN/creat 45/1.7 slightly increased from his last on 04/25/2025.
Troponin normal
No tachycardia, no hypoxemia, pain is mildly reproduced with deep palpation, on Xarelto, do not suspect PE.
patient reassured there is no indication that of any damage to his heart
He is still concerned that the pain, although mild, is persistent, he states he is concerned for PE
12:45 PM:
Chest CT radiology report read: No PE
Dr. Wong in to examine and discussed findings with
Pt stable for discharge
Plan: Tylenol, heat pad, time
<Angie Steward FILLING CARRIER - Last Filed: 09/09/25 17:47>
*Pulse Oximetry
SaO2: 97
Oxygen Mode of Delivery: Room air
Patient hypoxic: no
*EKG
EKG Intrepretation Date: 09/09/25
Interpretation: abnormal
Heart Rate: 95
Rate: normal
Rhythm: a-fib
[place]: normal axis
QRS Pattern: normal QRS
Ischemia: no ischemia
*Critical Care Note
Total Time (30-74mins, 75-104mins- exclusive of procedures): Not Applicable
ED Attending Note
<Angie Steward FILLING CARRIER - Last Filed: 09/09/25 17:47>
-
Portions of this chart may have been created with voice recognition software.� Occasional wrong word or��sound alike� substitutions may have occurred due to the inherent limitations of voice recognition software.
<Sedrick Wong MD - Last Filed: 09/09/25 12:58>
ED Attending Note
Patient seen and examined by attending physician: Yes
ED Attending Note:
I have seen and evaluated the patient with a [id number] encounter. I have spoken to the advance practicer provider and involved in the medical history, the physical exam, medical decision making.
Evaluation and management service: agree unless noted differently below.
Results interpretation: agree unless noted differently below.
Focused HPI: 59-year-old male with history as noted presents for evaluation of chest pain. Patient reports onset this morning at around 6:30 AM symptoms have been constant since that time. He reports a sharp pain in the left chest worse with
breathing. It is also worse with certain movements. He says he has had similar pains related to muscle in the past but these pains are more persistent. He does report that he was out golfing a few days ago wonders if this may have triggered. He
was concerned he could have been recurrent PE as he is a history of PE with similar symptoms however he is on Xarelto and reports compliance. Denies dyspnea or any other acute issues. He does report that he recently had viral URI symptoms which
resolved a day or 2 ago.
Physical exam: Mild tachycardia in triage resolved by my assessment. Normotensive, no tachypnea or hypoxia, no fever. Lungs sound clear. No cardiac rubs gallops or murmurs. Trace edema in the legs with chronic venous stasis changes.
Medical Decision Makin-year-old male presents for evaluation of left-sided chest pain as described above. Vitals and exam as above. Labs are sent off including a CBC and a CMP which showed no clinically significant abnormalities�he has no CKD
creatinine slightly worse than usual but given IV fluids here. T. bili marginally elevated but stable and normal transaminases. His troponin is undetectable with consistent symptoms all morning sufficient to rule out acute MA. CT chest shows no
acute abnormalities. Suspect this could be costochondritis versus pleurisy versus pericarditis. Stable for discharge advised Tylenol as needed, follow-up with PCP.
Discharge Plan
Departure
Patient Disposition: Home (Routine Discharge)
Date of Disposition: 09/09/25
Time of Disposition: 12:53
Patient with high blood pressure during this ER visit?: No
Condition: Good
Discharge Problem:
Left-sided chest pain
Instructions: Chest Pain That Is Not Caused by the Heart (DC)
Prescriptions:
No Action
cyanocobalamin (vitamin B-12) 1,000 MCG tablet
500 mcg PO DAILY
cetirizine 10 MG tablet
10 mg PO DAILY
cholecalciferol (vitamin D3) 2,000 UNITS tablet
2,000 units PO DAILY
Xarelto 20 MG tablet
20 mg PO DAILY
multivitamin with folic acid [Tab-A-Suellen] 1 TABLET tablet
1 tab PO DAILY
metformin 500 MG tablet
500 mg PO BID@0800,1700
atorvastatin 20 MG tablet
20 mg PO DAILY
fluticasone propionate 1 SPRAY spray,suspension
2 spray intranasal DAILY
nebivolol 10 MG tablet
20 mg PO DAILY
magnesium oxide 500 MG tablet
500 mg PO DAILY 30 Days Qty: 30 0RF
furosemide 40 mg tablet
40 mg PO DAILY
spironolactone 25 MG tablet
25 mg PO DAILY
allopurinol 100 mg Tablet
100 mg PO BID
acetaminophen [Tylenol Ex Str Arthritis Pain] 500 mg Tablet
500 mg PO Q6H PRN (Reason: discomfort)
valsartan 320 mg Tablet
320 mg PO DAILY
ibuprofen 200 mg Tablet
200 mg PO Q6H PRN (Reason: discomfort)
insulin glargine [Lantus Solostar U-100 Insulin] 100 unit/mL (3 mL) Insulin Pen
10 unit SC DAILY
turmeric 400 mg Capsule
400 mg PO DAILY
Mounjaro 5 mg/0.5 mL Pen Injector
5 mg SC SA
Ice Hot Cream
1 dose topical PRN PRN (Reason: pain)
Slo-Iron
1 tab PO DAILY
albuterol sulfate [Ventolin HFA] 90 mcg/actuation HFA aerosol inhaler
2 puff inhalation Q6H PRN (Reason: shortness of breath or wheezing) Qty: 6.7 0RF
Referrals:
Nely Patel PA-C [Family Provider, [facility]] - Call in 1-3 days for appt
Activity Restrictions/Additional Instructions:
As we discussed, your kidney function lab work is a little worse than previous. This may improve with staying hydrated. Drink at least 6 glasses of water/fluids daily
Have your kidney functions lab work (BMP) rechecked in 1 to 2 weeks, if worse, contact your organ grinder. Call your primary doctor to have her order the lab work through [facility]
Try Tylenol, heating pad for your chest pain.
Interventions
Interventions:
*Risk Screen - Suicide Last Done: 09/09/25 09:13
*General Assessment Last Done: 09/09/25 09:13
*Neglect/Abuse Screening Last Done: 09/09/25 09:13
*ED COVID-19 Vaccine History Last Done: 09/09/25 10:24
*ED Influenza Vaccine History Last Done: 09/09/25 10:24
*Nursing Disposition Last Done: 09/09/25 13:28
ED- Cardiac Assessment Last Done: 09/09/25 10:24
Discharge Date and Time
Discharge Date/Time: 09/09/25 13:28
Print Language: DANISH
[2025-09-09 10:00] VITALS: BP 115/71
[2025-09-09 10:23] VITALS: BMI 42.9
[2025-09-09 11:00] VITALS: BP 102/71
[2025-09-09 11:10] LABS: Hematocrit 35.3 % (39.0-52.0); Hemoglobin 11.6 g/dL (13.0-18.0); Mean Corp Hgb Conc. 32.9 g/dL (33.0-37.0); Mean Corpuscular Volume 97.5 fL (80.0-94.0); Nucleated Red Blood Cells % 0 % (-); Platelet Count 197 10^3/uL (130-400); Red Cell Dist. Width 12.9 % (11.5-14.5)
[2025-09-09 11:30] LABS: ALT (SGPT) 18 U/L (0-50); AST (SGOT) 21 U/L (17-59); Albumin 4.1 g/dl (3.5-5.0); Alkaline Phosphatase 58 U/L (38-126); Blood Urea Nitrogen 45 mg/dl (9-20); Calcium 10.1 mg/dl (8.4-10.2); Carbon Dioxide 27 mmol/L (22-30); Chloride 105 mmol/L (98-107); Estimated Creatinine Clearance 71 ml/min; Glucose 118 mg/dl (70-99); Potassium 4.0 mmol/L (3.5-5.1); Sodium 138 mmol/L (135-145); Total Protein 6.8 g/dl (6.3-8.2); eGFR 45.30
[2025-09-09 11:38] LABS: Troponin I < 0.012 ng/ml
[2025-09-09 12:00] VITALS: BP 91/69
[2025-09-09 12:28] VITALS: BP 107/73
[2025-09-09] MEDS: NSS 500 IV (12:30)
== END 2025-09-09 13:28 | disposition home or self-care (01) ==
LOC: EMR 09:11
PROVIDERS: Registered Nurse; EMERGENCY PHYSICIAN Emergency Medicine; FAMILY PHYSICIAN Physician Assistant Medical
DX: R07.9 Chest pain, unspecified (principal); E11.51 Type 2 diabetes mellitus with diabetic peripheral angiopathy without gangrene; I87.2 Venous insufficiency (chronic) (peripheral); I48.91 Unspecified atrial fibrillation; I11.0 Hypertensive heart disease with heart failure; I50.9 Heart failure, unspecified; E78.00 Pure hypercholesterolemia, unspecified; E66.01 Morbid (severe) obesity due to excess calories; Z68.41 Body mass index [BMI] 40.0-44.9, adult; F12.90 Cannabis use, unspecified, uncomplicated; Z79.84 Long term (current) use of oral hypoglycemic drugs; Z79.4 Long term (current) use of insulin; Z79.85 Long-term (current) use of injectable non-insulin antidiabetic drugs; Z79.01 Long term (current) use of anticoagulants; Z86.711 Personal history of pulmonary embolism; Z86.718 Personal history of other venous thrombosis and embolism; Z98.84 Bariatric surgery status
CPT/HCPCS: 99284; 96360; 71275; 80053; 84484; 85025; 93005; Q9967